=== PATIENT | female | born 1950 | race Caucasian/White ===

== ENCOUNTER 2019-11-10 12:43 | Day surgery (SDC) | payer OTHER, BC ==
[~2019-11-10] VITALS: Ht 154.9 cm; Wt 106.6 kg
--- NOTE | ~2019-11-10 | O ---
[facility] [place] [address] OPERATIVE REPORT Name: JEAN CORRIGAN Room #: 150-1 [facility]..#: [id number] Admission: 11/10/19 Attend Phys: Nevaeh Barba, Discharge: Date of : 46 Report #: [id number] THIS REPORT FOR: cc: LUIS - Family physician unknown LUIS - Family physician unknown Nevaeh Barba MD ~ CC: LUIS unknown Nevaeh Barba DATE OF SERVICE: 11/10/2019 PREOPERATIVE DIAGNOSIS: Left ring finger trigger finger. POSTOPERATIVE DIAGNOSIS: Left ring finger trigger finger. PROCEDURE PERFORMED: Left ring finger A1 lupillo release. SURGEON: Nevaeh Barba MD ANESTHESIA: Local MAC anesthesia. ESTIMATED BLOOD LOSS: Minimal. TOURNIQUET TIME: 5 minutes. COMPLICATIONS: None. CONDITION: Stable. DISPOSITION: Recovery room. INDICATIONS: The patient is a 69-year-old female with the above-mentioned diagnosis. She elects for operative treatment. The risks, benefits, alternatives and complications were discussed including, but not limited to infection, damage to vessels or nerves, incomplete relief or worsening of any symptoms. Informed consent was obtained. The correct extremity was identified and labeled by myself after verbal confirmation of the patient as well as visual confirmation and signed informed consent. DESCRIPTION OF PROCEDURE: The patient was brought back to the operating room and placed on the operating table in the supine position. She received preoperative antibiotics. Tourniquet was placed over padding on the patient's left wrist and left upper extremity was sterilely prepped and draped in the usual fashion. Final timeout was taken to verify correct patient, operative procedure, operative site, all concurred. After adequate sedation was achieved, a total of approximately 4 mL of mixture of 1% lidocaine with 0.25% Marcaine was [facility] [address] [place] [address] OPERATIVE REPORT Name: JEAN CORRIGAN Room #: 150-1 [facility].#: [id number] Admission: 11/10/19 Attend Phys: Nevaeh Barba, Discharge: Date of : 46 Report #: [id number] injected subcutaneously at the proposed incision site. The arm was elevated, exsanguinated and tourniquet inflated. The entire procedure was done with the aid of 3.5 times loupe magnification. Next, an oblique incision measuring approximately 1.5 cm was made over the ring finger A1 lupillo. Dissection was carried down through subcutaneous tissue with tenotomy scissors directly to the A1 lupillo. The A1 lupillo was easily identified and incised. It was thickened. Careful attention was placed to avoiding damage to any other structures. The finger was taken through passive range of motion. There was no locking or clicking. The tendons glided smoothly. Due to the patient's sedation, she was unable to actively participate. The wound was thoroughly irrigated. Skin was closed with 4-0 nylon suture. Wound was dressed with Adaptic and sterile gauze. She was placed in a bulky dressing. All fingers were pink with brisk capillary refill at the conclusion of case after deflation of tourniquet. All sponge and needle counts were correct. The patient was transferred to postoperative recovery room in stable condition.. By: [id number] Nevaeh Barba MD /nt
[~2019-11-10 12:43] MED LIST: APLENZIN174 MG PO; ASMANEX HFA13 G1 INH; ATENOLOL 50MG T50 MG PO; COZAAR 50 MG TA50 M1 PO; MIRAPEX0.5 MG PO; PANTOPRAZOLE SO40 M1 PO; PROAIR HFA8.5 GM INH; RECLAST 55 MG/1002 IVPB; SPIRONOLACTONE50 MG PO; TRAMADOL 50 MG50 MG PO; VITAMIN D21250 MCG PO
[2019-11-10 13:37] VITALS: BP 140/49
[2019-11-10 15:09] VITALS: BP 140/49
== END 2019-11-10 15:45 | disposition home or self-care (01) ==
LOC: EDBD → OR 12:43 → TBA 13:48 → OR 15:45
PROVIDERS: ATTEND Orthopaedic Surgery Hand Surgery
DX: M65.342 Trigger finger, left ring finger (principal); I10 Essential (primary) hypertension; E78.5 Hyperlipidemia, unspecified; J45.909 Unspecified asthma, uncomplicated; F32.9 Major depressive disorder, single episode, unspecified; G47.30 Sleep apnea, unspecified; K21.9 Gastro-esophageal reflux disease without esophagitis; Z98.890 Other specified postprocedural states; Z79.899 Other long term (current) drug therapy; Z88.0 Allergy status to penicillin; Z88.2 Allergy status to sulfonamides; Z88.8 Allergy status to other drugs, medicaments and biological substances; Z91.041 Radiographic dye allergy status
CPT/HCPCS: 50010; 50101; 50386; 56526; 57006; 57091; 57178; 62110; 62850; 70005

== ENCOUNTER → 2020-10-12 | Outpatient (CLI) | payer OTHER, BC ==
[~2020-10-12] MED LIST changes: +ATENOLOL 25 MG25 M1 PO; +CALCIUM 500 +1 EACH PO; +CYCLOBENZAPRINE5 MG PO; +CYMBALTA30 MG PO; +HYDROCODON-ACE1 EAC7 PO; +LOMOTIL TABLET1 EACH PO; -PANTOPRAZOLE SO40 M1 PO; +PROTONIX40 M4 PO; +PULMICORT FLEX90 MCG INH; +TYLENOL325 MG PO
[2020-10-12 13:38] LABS: URINE BILIRUBIN NEGATIVE (Negative); URINE BLOOD TRACE (Negative); URINE CLARITY CLEAR; URINE COLOR YELLOW; URINE GLUCOSE-RANDOM* NEGATIVE (Negative); URINE KETONES NEGATIVE (Negative); URINE NITRITE-REFLEX NEGATIVE (Negative); URINE PROTEIN (DIPSTICK) NEGATIVE (Negative); URINE UROBILINOGEN 0.2 E.U./dl (0.2-1.0)
[2020-10-12 13:39] LABS: HEMATOCRIT 41.2 % (37.0-47.0); HEMOGLOBIN 13.9 gm/dL (12.0-15.0); MCH 30.6 pg (26.0-34.0); MCHC 33.8 g/dL (28.0-37.0); MCV 90.6 fL (80.0-100.0); RBC 4.55 mil/uL (4.20-5.00); RDW 13.9 % (10.5-14.5); WBC 8.9 thou/uL (4.0-11.0)
[2020-10-12 13:41] LABS: URINE LEUKOCYTES-REFLEX 2+ (Negative)
[2020-10-12 13:49] LABS: BACTERIA-REFLEX 1-9 Few /HPF (None Seen); CASTS None Seen /LPF (None Seen); CRYSTALS None Seen /LPF (None Seen); SQUAMOUS 4-10 Moderate /LPF (0-3); URINE RBC 1-2 Rare /HPF (NONE SEEN)
[2020-10-12 13:50] LABS: ALBUMIN 3.5 g/dL (3.4-5.0); CALCIUM 8.8 mg/dL (8.5-10.1)
[2020-10-12 13:52] LABS: INR 0.94; PROTIME 10.3 Seconds (10.5-12.1)
== END ==
LOC: LAB 10:20
PROVIDERS: Orthopaedic Surgery; ATTEND Student in an Organized Health Care Education/Training Program
DX: Z01.812 Encounter for preprocedural laboratory examination (principal); Z20.822 Contact with and (suspected) exposure to COVID-19

== ENCOUNTER 2020-10-18 06:32 | Inpatient (IN) | payer OTHER, BC ==
[~2020-10-18] VITALS: Ht 154.9 cm; Wt 100.7 kg
[2020-10-18 07:01] VITALS: BP 152/82
--- NOTE | 2020-10-18 12:38 | O ---
[facility] [place] [address] OPERATIVE REPORT Name: JEAN CORRIGAN Room #: 435-P [facility] IN M.R.#: [id number] Admission: 10/18/20 Attend Phys: Pacheco Gutierrez MD Discharge: Date of : 46 Report #: [id number] THIS REPORT FOR: cc: Chantel Prasad MD, Kimberly J. MD Clymer, David J. MD ~ DOC #: [id number] Pacheco Gutierrez MD DATE OF SERVICE: 10/18/2020 PREOPERATIVE DIAGNOSIS: Degenerative osteoarthritis, left knee. POSTOPERATIVE DIAGNOSIS: Degenerative osteoarthritis, left knee. PROCEDURE: Left total knee arthroplasty. SURGEON: Pacheco Gutierrez MD INDICATIONS: This heavy 70-year-old female has a number of general medical and orthopedic problems including obesity, cervical spondylosis, lumbar spondylosis, chronic pain syndrome as well as moderate degenerative arthritis of multiple joints. Her left knee is the most problematic. She has tried conservative measures without benefit. She is awaiting bariatric surgery to help with her obesity. She is having difficulty maintaining independence. Given progressive knee pain, she has elected to go ahead with left total knee arthroplasty. The patient and family understand the treatment options and the potential risks and benefits well. DESCRIPTION OF PROCEDURE: The patient was taken to the operating room where she was placed under general anesthesia. Prophylactic intravenous antibiotics were administered. The left knee and leg were meticulously prepped and draped. An anterior longitudinal skin incision was made and carried through the medial retinaculum. The patella was reflected laterally. Marked degenerative change in all 3 compartments was noted. The Garzon and Nephew knee system was utilized. Intramedullary guides were used on both femur and the tibia. The femur was cut in 5 degrees of valgus and seemed best suited for a size 4 femoral component. Attention was then directed to the tibia. Good exposure was established. Intramedullary guide was used and the tibia was cut perpendicular to long axis of the bone in an attempt to correct her moderate preoperative varus malalignment. Minimal bone was resected in an effort to preserve posterior cruciate ligament and maximum capsule. The tibia seemed best suited for a size 3 tibial component. A trial reduction was performed and a 9 mm polyethylene insert resulted in satisfactory alignment, range of motion and stability. The patellar surface was resected with a patellar cutting guide. A size 29 patellar button fit appropriately and appropriate anchor holes were created. [address] [address] OPERATIVE REPORT Name: SHEKHARJEAN Room #: 435-P [facility] IN [facility]#: [id number] Admission: 10/18/20 Attend Phys: Pacheco Gutierrez MD Discharge: Date of : 46 Report #: [id number] The surfaces were thoroughly irrigated and dried. The intramedullary canal was blocked with a bone block on both the femoral and tibial sides. Methyl methacrylate cement was mixed and injected into the porous surface of the proximal tibia. The permanent components were brought up onto the field. The Garzon and Nephew size 3 Wendy II left nonporous tibial baseplate was selected. This was impacted into position and seated nicely and appeared to be secure. Excess cement was removed from around this margin. The size 9 mm high flexion polyethylene insert was inserted. This was snapped into place and seated nicely and appeared to be secure. The Garzon and Nephew size 4 left cruciate retaining Legion porous femoral component was impacted into position. Some cement was used at the distal aspect and anchor holes where the bone seemed to be slightly soft. This component also seemed to seat nicely and appeared to be secure. A 29 mm patellar button was cemented into place using appropriate anchor holes and secured with a patellar clamp until the cement had hardened. Once the cement was firm, range of motion, alignment and stability were once again assessed. The patella seems to track nicely and appears to be stable. The knee is much improved with regard to the preoperative varus malalignment. The knee demonstrates full knee extension and flexion beyond 130 degrees. A single Hemovac was left in the wound exiting through a separate stab incision. The fascia was then closed with multiple #1 Vicryl sutures. The subcutaneous tissues were closed with 0 Monocryl. The skin was closed with skin joana. A sterile dressing was applied. The patient was awakened and returned to recovery room in good condition. TOTAL TOURNIQUET TIME: 59 minutes. ESTIMATED BLOOD LOSS: 25 mL. Pacheco Gutierrez MD DJC/LUCILLE <ELECTRONICALLY SIGNED> By: Pacheco Gutierrez MD 10/18/20 1238 [id number] Pacheco Gutierrez MD /osvaldo
[2020-10-18 17:58] VITALS: BP 128/52
[2020-10-18 21:49] VITALS: BP 114/61
[2020-10-19 06:02] LABS: ABSOLUTE NEUTROPHILS 11.3 thou/uL (1.4-8.2); BASOPHILS 0.4 % (0.0-2.0); HEMATOCRIT 34.5 % (37.0-47.0); HEMOGLOBIN 11.3 gm/dL (12.0-15.0); LYMPHOCYTES 8.4 % (24.0-44.0); MCH 30.3 pg (26.0-34.0); MCHC 32.7 g/dL (28.0-37.0); MCV 92.7 fL (80.0-100.0); MONOCYTES 8.3 % (1.0-8.0); PLATELET COUNT 210 thou/uL (150-400); POLYS 82.9 % (36.0-66.0); RBC 3.73 mil/uL (4.20-5.00); RDW 13.9 % (10.5-14.5); WBC 13.7 thou/uL (4.0-11.0)
[2020-10-19 06:04] LABS: CALCIUM 8.3 mg/dL (8.5-10.1); POTASSIUM 4.2 mmol/L (3.5-5.1)
[2020-10-19 07:20] VITALS: BP 126/47
--- NOTE | 2020-10-19 07:59 | NUR ---
PT AOX4, NOTABLY HARD OF HEARING IN RIGHT EAR. PT REPORTS 8-10/10 PAIN IN LEFT KNEE, BACK, AND GROIN. PT RECEIVING PRN PO NORCO Q4HR, PRN PO OXYCODONE Q4HR, PRN IV MORPHINE Q1HR, WITH PRN PO APAP Q3HR AVAILABLE. PT DENIES SOB WHILE ON ROOM AIR, ON CPAP AT HS. PT TOLERATING PO INTAKE OF FLUIDS AND REGULAR DIET WITHOUT ISSUE. PT RESTING IN BED THROUGHOUT SHIFT, VOIDING PER BEDPAN. SENSATION INTACT, CAPILLARY REFILL LESS THAN 3SEC, PERIPHERAL PULSES PALPABLE IN ALL EXTREMITIES. FREQUENT REPOSITIONING ENCOURAGED WHILE IN BED, PT NOTED TO SHIFT INDEPENDENTLY. DRAIN REMAINS IN PLACE, DARK BLOOD NOTED, 100CC OF OUTPUT NOTED. PT ENCOURAGED TO NOTIFY STAFF FOR ALL NEEDS, CALL LIGHT WITHIN REACH, BED ALARM ON, BED LOCKED IN LOWEST POSITION, FREQUENT MONITORING WILL CONTINUE.
--- NOTE | 2020-10-19 09:44 | NUR ---
ASSESSMENT: CM REVIEWED CHART AND MET WITH PATIENT. PT IS ALERT AND ORIENTED X4. PT IS S/P LEFT TKR. PT REPORTS THAT SHE LIVES IN A HOUSE WITH SIGNIFICANT OTHER. PT REPORTS HAVING 4 STEPS WITH HANDRAILS TO ENTER THE HOME AND NO STEPS SHE HAS TO USE ONCE INSIDE. PT REPORTS THAT SHE HAS EVERYTHING READY AT HOME STATING SHE HAS A WALKER, SHOWER BENCH, REACHERS AND EQUIPMENT NEEDED. PT STATES SHE DID NOT DO WELL WITH THERAPY TODAY SO WAS TEARFUL AND HOPING SHE WILL STILL BE ABLE TO GO HOME SOON. PT STATES SHE HAD OUTPATIENT THERAPY ARRANGED TO BEGIN NEXT WEEK ON THURSDAY SHE THINKS. CM DISCUSSED ROLE. PT TEARFUL STATING SHE IS HOPING SHE WILL NOT HAVE TO GO TO A SNF BUT WILL GO IF SHE NEEDS TO. PT WILL CONTINUE TO WORK WITH THERAPY AND CM WILL CONTINUE TO FOLLOW TO ASSIST NEEDED.
[2020-10-19 16:03] VITALS: BP 198/70
--- NOTE | 2020-10-19 18:36 | NUR ---
ASSUMED CARE OF PT AT 0700 THIS MORNING. THIS IS DAY 2 POST SURGICAL FOR LEFT KNEE REPLACEMENT. PT HAS BEEN C/O SEVERE PAIN IN THE LOWER BACK AND LEFT KNEE. PT IS A/OX4, SKIN INTACT WITH INCISION SITE AT THE LEFT KNEE WITH HADLEY DRESSING AND DRAIN. ROLAN WRAPPED WITH ICE PK. LUNGS ARE CLEAR IN ALL WIGGINS. EYES PERRLA, NO TENTING, CR<3SECX4, ABD SOFT NONTENDER WITH ACTIVE BOWEL SOUNDS. IV IN RIGHT WRIST WITH SL. PT HAS BEEN C/O PAIN IN HER BACK AND KNEE MOST OF THE DAY. ASSESSMENTS WERE OTHERWISE UNREMARKABLE. OT WAS WITH PT AT 0940 THIS MORNING. I LEARNED THAT PT HAD FALLEN DUE TO HER LEFT KNEE BUCKLED. I WAS NEVER INFORMED OF THE INCIDEMT UNTIL THE PT TOLD ME AT 1100 THIS MORNING. CONTACTED OT GREENHOUSE TRANSPLANTER ABOUT THE INCIDENT AND A VERGE REPORT WILL BE SUBMITTED. PT HAS C/O MORE PAIN ON MOV'T AND AT REST.
--- NOTE | 2020-10-19 19:23 | NUR ---
I agree with assessment and note of BALAJI Bergman.
[2020-10-19 21:00] VITALS: BP 179/69
[2020-10-20 05:01] LABS: HEMATOCRIT 33.4 % (37.0-47.0); HEMOGLOBIN 10.8 gm/dL (12.0-15.0); MCH 29.7 pg (26.0-34.0); MCHC 32.3 g/dL (28.0-37.0); RBC 3.63 mil/uL (4.20-5.00); RDW 14.2 % (10.5-14.5); WBC 11.9 thou/uL (4.0-11.0)
[2020-10-20 05:40] VITALS: BP 174/70
--- NOTE | 2020-10-20 07:34 | NUR ---
RECEIVED CARE OF THIS PATIENT AT 1900. PATIENT ALERT AND ORIENTED X4. REMAINS ON BEDREST D/T FALL YESTERDAY. HAS HADLEY DRESSING ON L KNEE WITH TEDS AND SCD'S. DRESSING WHERE HEMAVAC WAS WAS CHANGED THIS AM. USES BEDPAN. VOIDED SEVERAL TIMES DURING SHIFT. SLEPT OFF AND ON DURING NIGHT.
[2020-10-20 08:56] VITALS: BP 151/50
[2020-10-20 15:36] VITALS: BP 151/63
--- NOTE | 2020-10-20 17:30 | NUR ---
PT ASSESSED AT START OF SHIFT. DOING MUCH BETTER TODAY. NO MORE KNEE BUCKLING AND WAS ABLE TO AMBULATE DOWN THE QUINN. SHE SAT UP FOR COUPLE HOURS IN RECLINGER. PAIN CONTROL MUCH BETTER TODAY. NAUSEA THIS AM BUT NONE THEREAFTER.
[2020-10-20 19:01] VITALS: BP 140/56
--- NOTE | 2020-10-21 03:19 | NUR ---
RECEIVED CARE OF THIS PATIENT AT 1900. PATIENT ALERT AND ORIENTED X4. HAS HADLEY DRESSING WITH TEDS AND SCDS ON L LOWER EXT. C/O PAIN, MED GIVEN. USES BEDPAN. GOAL IS TO GET UO BY SELF. SLEPT MOST OF NIGHT.
[2020-10-21 03:58] VITALS: BP 128/50
[2020-10-21 05:35] LABS: HEMATOCRIT 31.3 % (37.0-47.0); HEMOGLOBIN 10.4 gm/dL (12.0-15.0); MCH 30.2 pg (26.0-34.0); MCHC 33.2 g/dL (28.0-37.0); RBC 3.44 mil/uL (4.20-5.00)
[2020-10-21 09:18] VITALS: BP 156/68
--- NOTE | 2020-10-21 16:07 | NUR ---
PT ASSESSED AT START OF SHIFT. STATES SLEPT BETTER LAST NOC. STILL HAVING KNEE PAIN ALONG WITH HER CHONIC BACK PAIN BUT SHE IS MOVING MUCH BETTER AND PROGRESSING WELL W/ THERAPY. STATES SHE MIGHT BE READY TO GO HOME TOMORROW.
[2020-10-21 18:01] VITALS: BP 148/57
[2020-10-21 19:16] VITALS: BP 154/51
--- NOTE | 2020-10-22 02:28 | NUR ---
PT STILL C/O PAIN TO HER L KNEE AND BACK.UP TO THE BR WITH ASSISTX1/BG /WALKER.WBAT.DRSG TO HER L KNEE WITH SCANT DRIED BLOOD NOTED.SAHARA RAMOS AND SCD IN PLACE.PT PROGRESSING SLOWLY TOWARDS DC GOALS.CALL LIGHT WITHIN REACH.
[2020-10-22 07:29] VITALS: BP 109/44
[2020-10-22 15:52] VITALS: BP 141/51
--- NOTE | 2020-10-22 17:35 | NUR ---
Assumed pt care at 7am.Pt in bed resting.Assessment completed.vss. Assisted pt to bathroom as needed.Dr Gold here,order noted.Pt tolerated meds and diet. Pain meds given with relief. Thigh high tedhose applied. Pt stay in hospital till am. here to visit.Updates given.Fall bundle in place. Will continue to monitor.
[2020-10-22 19:24] VITALS: BP 150/79
[2020-10-22 20:43] VITALS: BP 150/79
--- NOTE | 2020-10-23 02:09 | NUR ---
PT AOX4. PT REPORTS 10/10 LLE PAIN, IN KNEE AND GROIN. PT RECEIVING PRN PO OXYCODONE Q4HR WITH PRN NORCO Q4HR AND PRN IV MORPHINE Q1HR AVAILABLE. PT DENIES SOB WHILE ON ROOM AIR. PT AMBULATING TO BATHROOM WITH LIMPING GAIT, X1 ASSIST, WALKER AND GAIT BELT PROVIDED. PT REQUESTING TO USE BEDPAN THROUGHOUT THE NIGHT DUE TO REPORTS OF INCREASED PAIN TO LLE. PT NOTED TO BE ANXIOUS AND TEARFUL REPORTING INCREASING PAIN SINCE SAHARA HOSE APPLIED TO LLE. PT REPORTS NUMBNESS TO LLE. SAHARA HOSE TO LLE TAKEN OFF, DARK PURPLE BRUISING NOTED BEHIND KNEE WITH RED CREASES, SAHARA HOSE REAPPLIED CREASES RELEASED, PT REPORTS PARTIAL RELIEF. ICE PACKS APPLIED, BLE ELEVATED. PERIPHERAL PULSES PALPABLE, CAPILLARY REFILL LESS THAN 3SEC IN ALL EXTREMITIES, CALF FIRM AND EDEMATOUS. [employer] QUARTER FOLDER PROVIDER NOTIFIED, RECEIVED ORDERS FOR ULTRASOUND OF LLE FOR 10/23, D/C PRN PO OXYCODONE, CHANGE PRN PO NORCO FROM 1TAB Q4HR PRN TO 2TAB Q6HR PRN, AND START MS CONTIN ER 15MG BID STARTING AT 2100 ON 10/22. PT AND PT DAUGHTER BRIANDA UPDATED VIA PHONE. PT RESTING IN BED THROUGHOUT SHIFT, FREQUENT REPOSITIONING ENCOURAGED, PT NOTED TO SHIFT INDEPENDENTLY WHILE IN BED. PT ENCOURAGED TO NOTIFY STAFF FOR ALL NEEDS, CALL LIGHT WITHIN REACH, BED ALARM ON, BED LOCKED IN LOWEST POSITION, FREQUENT MONITORING WILL CONTINUE.
[2020-10-23 03:05] LABS: GLYCOHEMOGLOBIN (HGB A1C) 6.1 % (4.8-5.6)
[2020-10-23 04:03] VITALS: BP 149/64
[2020-10-23 07:15] VITALS: BP 149/50
[2020-10-23 08:24] VITALS: BP 149/50
[2020-10-23 08:38] VITALS: BP 149/50
--- NOTE | 2020-10-23 09:33 | NUR ---
ASSUMED PT CARE THIS AM. PT IS ALERT & ORIENTED X4. PT HAS L LIMB ALERT. PT IS UP WITH ASSIST X1. PT USES BEDPAN. PT HAS HADLEY DRESSING. WILL CUT THE SUCTION PER DR ORDERED BEFORE PT DC. PT HAS SAHARA HOSES BILATERAL KNEE HIGH. PT HAS BM TODAY. PT C/O OF PAIN AND GIVEN PAIN MEDICATION PER PT REQUEST. PT TOLERATED MEDICATION AND DIET WELL THIS AM. PT ON THE BED, BED ON THE LOWEST POSITION, SIDE RAILS UP, CALL LIGHT WITHIN REACH. WILL CONTINUE TO MONITOR PT. FOLLOW POC.
--- NOTE | 2020-10-23 11:11 | NUR ---
ON-GOING ASSESSMENT: CM REVIEWED CHART AND SPOKE WITH PATIENT. PT HAS BEEN CLEARED TO DISCHARGE HOME TODAY WITH HOME HEALTH. CM NOTIFIED [facility] THAT SHE IS DISCHARGING WITH SERVICES. CM MET WITH PATIENT AND SHE HAS NO PREFERENCE OF HH AGENCY. [facility] DOES NOT GO TO [place] CM FAXED REFERRAL TO [facility] WHO HAS ACCEPTED PATIENT AND PUT HER ON THE SCHEDULE FOR TOMORROW. CM NOTIFIED PATIENT. CM ALSO FAXED D/C PAPERWORK TO [facility] AND CONFIRMED THEY RECEIVED IT. PT HAS ALL EQUIPMENT NEEDED AT HOME. BEDSIDE RN AWARE. CASE CLOSED.
--- NOTE | 2020-10-24 13:17 | D ---
[facility] [place] [address] DISCHARGE SUMMARY Name: JEAN CORRIGAN Room #: 435-P [facility] IN M.R.#: [id number] Admission: 10/18/20 Attend Phys: Pacheco Gutierrez MD Discharge: 10/23/20 Date of : 46 Report #: [id number] THIS REPORT FOR: cc: Chantel Prasad MD, Kimberly J. MD Clymer,Pacheco Bello MD ~ DOC #: [id number] Pacheco Gutierrez MD DATE OF SERVICE: 10/23/2020 FINAL DIAGNOSES: Morbid obesity, type 2 diabetes, end-stage degenerative arthritis left knee, hypertension, chronic lumbar spondylosis with radiculopathy and chronic pain syndrome, chronic narcotic dependence, left total knee arthroplasty, fibromyalgia. OPERATION AND PROCEDURES: Left total knee replacement. HISTORY: This heavy 70-year-old female who has a number of chronic medical problems including fibromyalgia and chronic pain syndrome with chronic lumbar radiculopathy. She also has degenerative arthritis in multiple joints, most severe in the left knee. She is limited by her morbid obesity. We discussed treatment options and elected to go ahead with left total knee replacement. The patient and family understand this may be a very difficult process given her age, size and other medical problems. However, she feels she cannot make progress with weight reduction in her other areas of difficulty without improvement in the left knee. HOSPITAL COURSE: The patient was admitted and taken to the operating room on 10/18. She underwent left total knee replacement. She actually tolerated the surgery quite nicely. X-rays and clinical exam in the postoperative period looked good; however, she has had significant problems with pain control and emotional variability. At times, her pain is severe and we have advanced her narcotic pain medications and at that the time she seems to be quite comfortable. She has made very slow progress with therapy. On one occasion, she stumbled and twisted the knee and complained of some temporary increase in discomfort; however, clinical exam revealed no evidence of significant new problems. We have continued with a directed therapy here over the holiday weekend hoping that she would make a clear progress. She has improved sufficiently and now seems ready for discharge home, but will require a good deal of family assistance as well as visiting therapy and occupational therapy. DISCHARGE MEDICATIONS: Include albuterol inhaler 2 puffs q. 6 hours p.r.n. asthma, Cozaar 50 mg b.i.d., Mirapex 0.5 mg b.i.d., Protonix 40 mg b.i.d., spironolactone 50 mg daily, Cymbalta 30 mg daily, hydrocodone 10 mg q. 4-6 hours p.r.n. for moderate pain, oxycodone 10 mg q. 4-6 hours p.r.n. more severe pain, Xarelto 10 mg daily, atenolol 25 mg daily, Flexeril 5 mg t.i.d. p.r.n. for muscle spasm. [address] [address] DISCHARGE SUMMARY Name: DEDRICK CORRIGANHawa Mckee Room #: 435-P [facility] M.R.#: [id number] Admission: 10/18/20 Attend Phys: Pacheco Gutierrez MD Discharge: 10/23/20 Date of : 46 Report #: [id number] She will continue a calorie controlled diabetic diet. She will continue with activity at home with family assistance and will receive home visiting physical therapy and occupational therapy as needed. I have asked the patient or family to call me frequently to address any new problems or complaints. They understand that she will be at risk for falls and injuries and therefore needs to be assisted whenever she is standing or walking. We will try to manage her narcotic medications at tapering regimen, but this may be difficult given her chronic pain syndrome and chronic narcotic use. I will plan to see her back in my office in 1 week for followup and suture removal. Pacheco Gutierrez MD DJC/KENDELL <ELECTRONICALLY SIGNED> By: Pacheco Gutierrez MD 10/24/20 1317 [id number] Pacheco Gutierrez MD /nt
== END 2020-10-23 14:00 | disposition home health service (06) | DRG 470 ==
LOC: PRE → TBA 06:32 → 4S 06:32 → PRE 09:30 → 4S 11:34 → PRE 14:05 → 4S 10-23 14:00
PROVIDERS: Hospitalist; Nurse Practitioner; ADMIT Orthopaedic Surgery; ATTEND Orthopaedic Surgery
DX: M17.12 Unilateral primary osteoarthritis, left knee (principal); F11.20 Opioid dependence, uncomplicated; G81.90 Hemiplegia, unspecified affecting unspecified side; Z68.41 Body mass index [BMI] 40.0-44.9, adult; J45.909 Unspecified asthma, uncomplicated; I10 Essential (primary) hypertension; E11.9 Type 2 diabetes mellitus without complications; E78.5 Hyperlipidemia, unspecified; M54.9 Dorsalgia, unspecified; F41.9 Anxiety disorder, unspecified; K21.9 Gastro-esophageal reflux disease without esophagitis; F32.9 Major depressive disorder, single episode, unspecified; M79.7 Fibromyalgia; N28.9 Disorder of kidney and ureter, unspecified; E66.01 Morbid (severe) obesity due to excess calories; K58.9 Irritable bowel syndrome, unspecified; M47.896 Other spondylosis, lumbar region; M54.16 Radiculopathy, lumbar region; D64.9 Anemia, unspecified; G89.4 Chronic pain syndrome; R26.89 Other abnormalities of gait and mobility; M47.892 Other spondylosis, cervical region; D72.829 Elevated white blood cell count, unspecified; G47.33 Obstructive sleep apnea (adult) (pediatric); R53.81 Other malaise; T78.8XXA Other adverse effects, not elsewhere classified, initial encounter; X58.XXXA Exposure to other specified factors, initial encounter; Z88.0 Allergy status to penicillin; Z88.2 Allergy status to sulfonamides; Z88.8 Allergy status to other drugs, medicaments and biological substances; Z88.1 Allergy status to other antibiotic agents; Z91.041 Radiographic dye allergy status; Z90.49 Acquired absence of other specified parts of digestive tract; Z85.3 Personal history of malignant neoplasm of breast; Z92.3 Personal history of irradiation
CPT/HCPCS: 10102; 50010; 50101; 50415; 50954; 51130; 51225; 51412; 56525; 57095; 57103; 57104; 57180; 58449; 62110; 62900; 64042; 70005